=== PATIENT | female | born 1995 | race Asian ===

== ENCOUNTER 2016-10-13 17:10 | Emergency (ER) | payer SELFPAY ==
[~2016-10-13] VITALS: Ht 170.2 cm; Wt 57.0 kg
[2016-10-13] MEDS ORDERED: KETOROLAC 30MG/ML VIAL IM ONE (21:45)
[2016-10-13 21:53] LABS: CLARITY URINE CLOUDY (CLEAR); COLOR URINE YELLOW (YELLOW); GLUCOSE URINE NEGATIVE (NEGATIVE); KETONES URINE NEGATIVE (NEGATIVE); LEUKOCYTE ESTERASE URINE 2+ (NEGATIVE); NITRITE URINE NEGATIVE (NEGATIVE); OCCULT BLOOD URINE 2+ (NEGATIVE); PH URINE 5.5 (4.5-8.0); PROTEIN URINE 2+ (NEGATIVE); SPECIFIC GRAVITY URINE 1.015 (1.005-1.030); UROBILINOGEN URINE 0.2 E.U./dL (0.2-1.0)
[2016-10-13 22:11] LABS: BASOPHILS % 0.2 % (0.0-2.0); EOSINOPHILS % 1.6 % (0.0-5.0); HEMOGLOBIN. 11.2 g/dL (12.0-16.0); MEAN CORPUSCULAR HEMOGLOBIN 22.5 pg (28.0-32.0); MEAN CORPUSCULAR VOLUME 74.3 fL (81.0-99.0); MEAN PLATELET VOLUME 8.5 fl (7.4-10.4); MONOCYTES % 5.4 % (2.0-8.0); NEUTROPHILS % 74.8 % (40.0-76.0); PLATELET 263 x1000/uL (130-400); RED BLOOD CELL COUNT 4.98 mill/uL (4.2-5.4); RED CELL DISTRIBUTION WIDTH 17.7 % (11.6-14.6)
[2016-10-13 22:12] LABS: CHLORIDE 106 mEq/L (98-107)
[2016-10-13 22:17] LABS: CARBON DIOXIDE 21 mEq/L (21-32)
[2016-10-13 23:08] VITALS: BP 117/64
== END 2016-10-13 23:38 | disposition home or self-care (01) ==
LOC: EDBD 17:10 → ER 21:50
DX: N39.0 Urinary tract infection, site not specified (principal); E16.2 Hypoglycemia, unspecified
CPT/HCPCS: 36415; 80048; 81001; 82962; 85025; 96372; 99284; J1885; Z7610